=== PATIENT | male | born 2000 | race Hispanic/Latino ===

== ENCOUNTER 2023-10-17 08:54 | Emergency (ER) | payer SELFPAY ==
[2023-10-17] VITALS (16 sets, daily range): BP systolic 103–136; BP diastolic 67–82
[~2023-10-17] VITALS: Ht 162.6 cm; Wt 68.0 kg
[2023-10-17] MEDS ORDERED: ORPHENADRINE CITRATE 30 MG/ML AMP IM ONE (09:20)
[2023-10-17] MEDS ORDERED: KETOROLAC TROMETHAMINE 30 MG/ML SDV IM ONE (09:20)
[2023-10-17] MEDS ORDERED: MEDDOSEPAK PO (12:23)
[2023-10-17] MEDS ORDERED: NABUMETONE750 MG PO (12:23)
[2023-10-17] MEDS ORDERED: ORPHENADRINE100 MG PO (12:24)
== END 2023-10-17 12:37 | disposition home or self-care (01) | DRG 552 ==
LOC: ED 08:54
DX: S23.3XXA Sprain of ligaments of thoracic spine, initial encounter (principal); X58.XXXA Exposure to other specified factors, initial encounter